=== PATIENT | female | born 1970 | race Caucasian/White ===

== ENCOUNTER → 2016-12-31 | Outpatient (CLI) | payer OTHER ==
--- NOTE | 2016-12-31 15:27 | US ---
Transabdominal and Endovaginal Pelvic Ultrasound Clinical History: 46-year-old female with intermittent left lower quadrant pain. The patient had a be nign endometrial biopsy in July 2016. She is , and her LMP was December 13, 2016. ICD 10 Diagnostic Code: R 10.2. TECHNIQUE: A curvilinear 5 MHz transducer was initially used to sonographically evaluate the pelvis, using a full urinary bladder as a window. To better assess the uterine architecture and the adnexal s tructures, endovaginal pelvic sonography was also performed. Color and spectral Doppler were used. Comparison: None available. Findings: Transabdominal Pelvic Sonography: The uterus is normal in size, shape, and position, measuring 9.5 x 6.2 x 4.6 cm. The visualized aspects of the urinary bladder are normal. The right adnexal region is obscured by bowel gas. There is a cystic structure associated with the left ovary, which will be bett er examined endovaginally. There is no free fluid. Endovaginal Pelvic Sonography: The endometrium is homogeneous, and measures 10 mm. There is some mil d myometrial heterogeneity although there is no discrete fibroid. A couple of tiny anechoic benign-ap pearing nabothian cysts at the level of the cervix are noted. The right ovary measures 1.5 x 2.6 x 2. 0 cm. The left ovary measures 2.6 x 2.2 x 3.2 cm, and contains a 1.6 x 1.3 x 1.4 cm hemorrhagic folli cular cyst. Normal arterial blood flow is documented to both ovaries by Doppler ultrasound. The resis tive index in the right ovary is 0.48, and in the left ovary is 0.51. There is no free fluid in the p elvic cul-de-sac. Impression: There is a 1.6 cm left ovarian hemorrhagic follicular cyst. There is no torsion or free f luid.
== END ==
LOC: BRMIMAGING 13:06
PROVIDERS: ATTEND Obstetrics & Gynecology
DX: N83.02 Follicular cyst of left ovary (principal)
CPT/HCPCS: 76856-PO